=== PATIENT | male | born 1995 ===

== ENCOUNTER 2016-08-23 00:07 | Emergency (ER) | payer OTHER ==
[2016-08-23 00:27] VITALS: BP 145/92; TEMP 98.9
--- NOTE | 2016-08-23 00:27 | ED PDOC ---
Arrival/HPI - General Chief Complaint: Chest Pain Time Seen by Provider: 08/23/16 00:16 Historian: Patient - History of Present Illness Narrative History of Present Illness (Text): 08/23/16 00:26 Dejan Nelson is a 21 year old male, whose past medical history includes hypertension and palpitations, who presents to the ED complaining of chest pain, worsened with movement, tonight while at home. Patient denies any fever, chills, shortness of breath, nausea, vomiting, diarrhea, urinary symptoms , back pain, neck pain, headache, dizziness, or any other complaints. Time/Duration: Other (tonight) Symptom Onset: Gradual Symptom Course: Unchanged Activities at Onset: Rest, Light Context: Home Past Medical History - Provider Review Nursing Documentation Reviewed: Yes Family/Social History - Physician Review Nursing Documentation Reviewed: Yes Family/Social History: No Known Family HX Allergies/Home Meds Allergies/Adverse Reactions: Allergies No Known Allergies Allergy (Verified 08/23/16 00:28) Review of Systems - Physician Review All systems were reviewed & negative as marked: Yes - Review of Systems Constitutional: Normal. absent: Fevers Eyes: Normal ENT: Normal Respiratory: Normal. absent: SOB, Cough Cardiovascular: Chest Pain Gastrointestinal: Normal. absent: Abdominal Pain, Diarrhea, Nausea, Vomiting Genitourinary Male: Normal. absent: Dysuria, Frequency, Hematuria, Urinary Output Changes Musculoskeletal: Normal. absent: Neck Pain Skin: Normal. absent: Rash Neurological: Normal. absent: Headache, Dizziness Endocrine: Normal Hemo/Lymphatic: Normal Psychiatric: Normal Physical Exam Vital Signs Reviewed: Yes Vital Signs Temp Pulse Resp BP Pulse Ox 08/23/16 02:47 80 16 98 08/23/16 00:25 98.9 F 109 H 20 145/92 H 99 Temperature: Afebrile Blood Pressure: Normal Pulse: Regular Respiratory Rate: Normal Appearance: Positive for: Well-Appearing, Non-Toxic, Comfortable Pain Distress: None Mental Status: Positive for: Alert and Oriented X 3 - Systems Exam Head: Present: Atraumatic, Normocephalic Pupils: Present: PERRL Extroacular Muscles: Present: EOMI Conjunctiva: Present: Normal Mouth: Present: Moist Mucous Membranes Neck: Present: Normal Range of Motion Respiratory/Chest: Present: Clear to Auscultation, Good Air Exchange. No: Respiratory Distress, Accessory Muscle Use Cardiovascular: Present: Regular Rate and Rhythm, Normal S1, S2. No: Murmurs Abdomen: Present: Normal Bowel Sounds. No: Tenderness, Distention, Peritoneal Signs Back: Present: Normal Inspection Upper Extremity: Present: Normal Inspection. No: Cyanosis, Edema Lower Extremity: Present: Normal Inspection. No: Edema Neurological: Present: GCS=15, CN II-XII Intact, Speech Normal Skin: Present: Warm, Dry, Normal Color. No: Rashes Psychiatric: Present: Alert, Oriented x 3, Normal Insight, Normal Concentration Medical Decision Making ED Course and Treatment: 08/23/16 00:26 Impression: 18 year old male complaining of chest pain tonight. Differential Diagnosis include but are not limited to: musculoskeletal pain Plan: -- EKG -- Chest X-ray -- Labs, cardiac enzymes, D-dimer -- Toradol -- Reassess and disposition Progress Notes: Reviewed EKG, sinus tachycardia at [address] bpm[address] Non-specific ST/T wave changes. 08/23/16 01:50 Reviewed radiology, Chest X-ray shows no active disease. 08/23/16 03:15 On re-evaluation, the patient feels better and is in no acute distress. I have discussed the results and plan with the patient, who expresses understanding. Patient in agreement with plan to discharged home. Patient is stable for discharge. Patient was instructed to follow up with physician/clinic in 1-2 days or return if symptoms worsen or new concerning symptoms arise. - Lab Interpretations Lab Results: 08/23/16 00:40 08/23/16 01:15 Lab Results 08/23/16 01:15: D-Dimer, Quantitative 0.19, Sodium 137, Potassium 3.3 L, Chloride 100, Carbon Dioxide 25, Anion Gap 15, BUN 16, Creatinine 1.1, Est GFR ( Amer) > 60, Est GFR (Non-Af Amer) > 60, Random Glucose 93, Calcium 8.8, Total Bilirubin 1.1, AST 33, ALT 39, Alkaline Phosphatase 59, Lactate Dehydrogenase 424, Total Creatine Kinase 269 H, CK-MB (CK-2) 2.2, CK-MB (CK-2) % Cancelled, Troponin I < 0.01, Total Protein 7.4, Albumin 4.0, Globulin 3.3, Albumin/Globulin Ratio 1.2 08/23/16 00:40: WBC 10.9, RBC 5.17, Hgb 16.9, Hct 46.5, MCV 89.9, MCH 32.7, MCHC 36.3, RDW 13.0, Plt Count 253, MPV 10.2, PT 11.2, INR 1.04, APTT 25.9 I have reviewed the lab results: Yes - RAD Interpretation Narrative RAD Interpretations (Text): Chest X-ray shows no active disease. Radiology Orders: 08/23/16 00:30 CHEST PORTABLE [RAD] Stat Cloth Opener Hand: ED Physician - EKG Interpretation Interpreted by ED Physician: Yes Type: 12 lead EKG - Medication Orders Current Medication Orders: Discontinued Medications Ketorolac Tromethamine (Toradol) 30 mg IVP ONCE ONE Stop: 08/23/16 00:32 Last Admin: 08/23/16 02:15 Dose: 30 MG IVP Administration Document 08/23/16 02:15 GMD (Rec: 08/23/16 02:15 GMD [id number]) Charges for Administration # of IVP Administrations 1 Potassium Chloride (K-Dur 20 Meq Er Tab) 20 meq PO STAT STA Stop: 08/23/16 02:32 Last Admin: 08/23/16 02:47 Dose: 20 MEQ - Timothyibe Statement The provider has reviewed the documentation as recorded by the Timmy Waggoner Provider Attestation: All medical record entries made by the Timmy were at my direction and personally dictated by me. I have reviewed the chart and agree that the record accurately reflects my personal performance of the history, physical exam, medical decision making, and the department course for this patient. I have also personally directed, reviewed, and agree with the discharge instructions and disposition. Disposition/Present on Arrival - Present on Arrival Any Indicators Present on Arrival: No - Disposition Have Diagnosis and Disposition been Completed?: Yes Diagnosis: Musculoskeletal chest pain Disposition: HOME/ ROUTINE Disposition Time: 03:18 Patient Plan: Discharge Condition: GOOD Discharge Instructions (ExitCare): Chest Pain (ED) Print Language: HEBREW Additional Instructions: Rest/no strenuous physical activity/advil as directed/follow up with your doctor Referrals: [facility], [place], [facility] [Outside] - Follow up with primary
[2016-08-23 00:28] VITALS: BMI 25.7
[2016-08-23 01:08] LABS: INR 1.04 (0.93-1.08); PARTIAL THROMBOPLASTIN TIME 25.9 Seconds (23.7-30.8)
[2016-08-23 01:17] LABS: HEMATOCRIT 46.5 % (42.0-52.0); MEAN CELL VOLUME 89.9 fL (80.0-105.0); MEAN CORPUSCULAR HEMOGLOBIN 32.7 pg (25.0-35.0); MEAN CORPUSCULAR HGB CONC 36.3 g/dl (31.0-37.0); MEAN PLATELET VOLUME 10.2 fl (7.0-11.0); WHITE BLOOD COUNT 10.9 10^3/ul (4.5-11.0)
[2016-08-23 01:41] LABS: ALB/GLOB RATIO 1.2 (1.1-1.8); ALKALINE PHOSPHATASE 59 U/L (38-133); ALT/SGPT 39 U/L (7-56); AST/SGOT 33 U/L (15-39); BILIRUBIN,TOTAL 1.1 mg/dL (0.2-1.3); BLOOD UREA NITROGEN 16 mg/dL (7-18); CALCIUM 8.8 mg/dL (8.4-10.5); CARBON DIOXIDE 25 mmol/L (21-33); CHLORIDE 100 mmol/L (98-107); GFR AFRICAN-AMERICAN > 60; GLUCOSE,RANDOM 93 mg/dL (70-127); POTASSIUM 3.3 mmol/L (3.6-5.0); SODIUM 137 mmol/L (132-148); TOTAL PROTEIN 7.4 g/dL (6.2-8.1)
[2016-08-23 02:13] LABS: TROPONIN I < 0.01 ng/mL
[2016-08-23] MEDS ORDERED: Potassium Chloride 20 mEq ER Tab PO STA (02:31)
[2016-08-23 02:49] VITALS: PULSE 80; RESP 16; O2SAT 98
--- NOTE | 2016-08-23 08:27 | RAD ---
HISTORY: pain COMPARISON: No prior. FINDINGS: LUNGS: No active pulmonary disease. PLEURA: No significant pleural effusion identified, no pneumothorax apparent. CARDIOVASCULAR: Normal. OSSEOUS STRUCTURES: No significant abnormalities. VISUALIZED UPPER ABDOMEN: Normal. OTHER FINDINGS: None. IMPRESSION: No active disease.
--- NOTE | 2016-08-23 15:10 | CARD ---
APPROVED REPORT EKG Measurement Heart [id number] <Conclusion> Sinus tachycardia Minimal voltage criteria for LVH, may be normal variant Inferior infarct, age undetermined Abnormal ECG
== END 2016-08-23 03:21 | disposition home or self-care (01) ==
LOC: ED 00:07
DX: R07.89 Other chest pain (principal); I10 Essential (primary) hypertension
CPT/HCPCS: 71010; 80053; 82550; 82553; 83615; 84484; 85027; 85378; 85610; 85730; 93005; 96374; 99284; J1885

== ENCOUNTER 2018-10-18 20:23 | Emergency (ER) | payer SELFPAY ==
[2018-10-18 20:23] VITALS: BMI 25.7
--- NOTE | 2018-10-18 21:13 | ED PDOC ---
Arrival/HPI - General Historian: Patient, Partner - History of Present Illness Narrative History of Present Illness (Text): 10/18/18 21:10 Pt is a 23 yo male with a PMH of HTN who presents to the ED complaining of dizziness, headache, and chest pressure while he was working yesterday. Pt states the 8/10 chest pain felt like "someone standing on my chest". Pt states that he had to use 3 pillows last night and woke up with dried blood on his pillow and nose. Pt tried Tylenol which only helped minimally. Denies every using cocaine, diarrhea, or constipation. Time/Duration: < week Symptom Course: Worsening Quality: Pressure Severity Level: 8 Activities at Onset: Rest Context: Exertion <Steven Gilliland - Last Filed: 10/19/18 00:50> <Angus Burgos - Last Filed: 10/22/18 20:26> - General Chief Complaint: Dizziness/Lightheaded Past Medical History - Infectious Disease Hx of Infectious Diseases: None - Cardiac Hx Cardiac Arrhythmia: Yes Hx Hypertension: Yes - Psychiatric Hx Substance Use: No - Anesthesia Hx Anesthesia: No Hx Anesthesia Reactions: No Hx Malignant Hyperthermia: No <Steven Gilliland - Last Filed: 10/19/18 00:50> Family/Social History Family/Social History: Diabetes, Hypertension Smoking Status: Never Smoked Hx Alcohol Use: Yes Hx Substance Use: No <Steven Gilliland - Last Filed: 10/19/18 00:50> Allergies/Home Meds <Steven Gilliland - Last Filed: 10/19/18 00:50> <Angus Burgos - Last Filed: 10/22/18 20:26> Allergies/Adverse Reactions: Allergies No Known Allergies Allergy (Verified 08/23/16 00:28) Review of Systems - Review of Systems Constitutional: Normal Eyes: Eye Pain ENT: Epistaxis Respiratory: SOB Cardiovascular: Chest Pain Gastrointestinal: Nausea Genitourinary Male: Normal Musculoskeletal: Normal Skin: Normal Neurological: Dizziness Endocrine: Normal Hemo/Lymphatic: Normal Psychiatric: Normal <Steven Gilliland - Last Filed: 10/19/18 00:50> Physical Exam Vital Signs Reviewed: Yes Vital Signs Temp Pulse Resp BP Pulse Ox 10/18/18 20:23 99.5 F 91 H 18 148/104 H 96 Temperature: Afebrile Blood Pressure: Normal Pulse: Regular Respiratory Rate: Normal Appearance: Positive for: Well-Appearing Mental Status: Positive for: Alert and Oriented X 3 - Systems Exam Head: Present: Atraumatic, Normocephalic Pupils: Present: PERRL Extroacular Muscles: Present: EOMI Mouth: Present: Moist Mucous Membranes Respiratory/Chest: Present: Clear to Auscultation, Good Air Exchange. No: Resp iratory Distress, Accessory Muscle Use Cardiovascular: Present: Normal S1, S2, Tachycardic Abdomen: Present: Normal Bowel Sounds. No: Tenderness, Distention Upper Extremity: Present: Normal Inspection. No: Cyanosis, Edema Lower Extremity: Present: Normal Inspection. No: Edema Neurological: Present: GCS=15, CN II-XII Intact Skin: Present: Warm, Dry Psychiatric: Present: Alert, Oriented x 3 <Steven Gilliland - Last Filed: 10/19/18 00:50> Vital Signs Temp Pulse Resp BP Pulse Ox 10/18/18 21:39 17 96 10/18/18 20:23 99.5 F 91 H 18 148/104 H 96 <Angus Burgos - Last Filed: 10/22/18 20:26> Medical Decision Making ED Course and Treatment: 10/18/18 21:16 CBC CMP Troponin 10/18/18 21:29 10/18/18 22:51 CXR shows no active disease 10/19/18 00:50 will have pt follow up with Dr Lamb in the [facility] Pt seen, examined, assessment and plan discussed with Dr Aubrey Gilliland PGY1 <Steven Gilliland - Last Filed: 10/19/18 00:50> ED Course and Treatment: Impression: Pt seen and evaluated with director medical surgical publication manager. Aware and agree with HPI, clinical findings, plan, and management. Pt, whose past medical history includes hypertension, presented for dizziness, headache, and chest pressure. Plan: -- EKG -- Chest X-ray -- Labs, troponin -- Urinalysis -- Reassess and disposition - Lab Interpretations Lab Results: Troponin I < 0.01 ng/mL 10/18/18 21:20 Total Bilirubin 1.1 mg/dL (0.2-1.3) 10/18/18 21:20 AST 56 U/L (17-59) 10/18/18 21:20 ALT 90 U/L (7-56) H 10/18/18 21:20 Alkaline Phosphatase 69 U/L (38-126) 10/18/18 21:20 Total Protein 8.2 g/dL (5.8-8.3) 10/18/18 21:20 Albumin 4.8 g/dL (3.0-4.8) 10/18/18 21:20 Globulin 3.5 gm/dL 10/18/18 21:20 Albumin/Globulin Ratio 1.4 (1.1-1.8) 10/18/18 21:20 - RAD Interpretation Radiology Orders: 10/18/18 22:08 CXR [CHEST PORTABLE] [RAD] Stat <Angus Burgos - Last Filed: 10/22/18 20:26> - PA / BEAUTY OPERATOR / Resident Statement / has reviewed & agrees with the documentation as recorded. / has examined the patient and agrees with the treatment plan. <Angus Burgos - Last Filed: 10/22/18 20:26> Disposition/Present on Arrival - Present on Arrival Any Indicators Present on Arrival: No History of DVT/PE: No History of Uncontrolled Diabetes: No Urinary Catheter: No History of Decub. Ulcer: No History Surgical Site Infection Following: None - Disposition Have Diagnosis and Disposition been Completed?: Yes Disposition Time: 00:44 Patient Plan: Discharge <Steven Gilliland - Last Filed: 10/19/18 00:50> <Angus Burgos - Last Filed: 10/22/18 20:26> - Disposition Diagnosis: Dizziness Disposition: HOME/ ROUTINE Condition: GOOD Discharge Instructions (ExitCare): Vertigo (a Type of Dizziness), Dizziness, Nonvertigo, (DC) Additional Instructions: have patient follow up with the [facility] here at [facility] with Dr Lamb Referrals: PCP,NO [Primary Care Provider] - Follow up with primary Forms: [employer] ([place]), WORK NOTE
[2018-10-18 21:40] LABS: BASO # 0.05 K/mm3 (0.0-2.0); BASO % 0.3 % (0.0-3.0); EOS # 0.7 (0.0-0.7); HEMOGLOBIN 17.4 g/dL (14.0-18.0); LYMPH # 2.4 (1.2-3.4); LYMPH % 16.2 % (22.0-35.0); MEAN CELL VOLUME 89.1 fl (80.0-105.0); MEAN CORPUSCULAR HEMOGLOBIN 32.3 pg (25.0-35.0); MEAN CORPUSCULAR HGB CONC 36.3 g/dl (31.0-37.0); MEAN PLATELET VOLUME 9.3 fl (7.0-11.0); MONO # 1.1 (0.1-0.6); MONO % 7.3 % (1.0-6.0); RBC 5.39 10^6/uL (3.5-6.1); RED CELL DISTRIBUTION WIDTH 12.7 % (11.5-14.5); WHITE BLOOD COUNT 14.6 10^3/uL (4.5-11.0)
[2018-10-18 21:43] LABS: ALB/GLOB RATIO 1.4 (1.1-1.8); ALBUMIN 4.8 g/dL (3.0-4.8); ALT/SGPT 90 U/L (7-56); AST/SGOT 56 U/L (17-59); BLOOD UREA NITROGEN 14 mg/dL (7-21); CALCIUM 9.7 mg/dL (8.4-10.5); GFR NON-AFRICAN AMERICAN > 60
[2018-10-18 21:55] LABS: TROPONIN I < 0.01 ng/mL
[2018-10-18 23:39] VITALS: O2SAT 94
[2018-10-19 00:27] LABS: PH,URINE 6.5 (4.7-8.0); URINE APPEARANCE CLEAR (CLEAR); URINE BILIRUBIN NEGATIVE (NEGATIVE); URINE BLOOD NEGATIVE (NEGATIVE); URINE COLOR YELLOW (YELLOW); URINE GLUCOSE (UA) NEGATIVE (NEGATIVE); URINE LEUKOCYTE ESTERASE NEGATIVE Leu/uL (NEGATIVE); URINE PROTEIN NEGATIVE mg/dL (<30 mg/dL); URINE UROBILINOGEN 0.2 E.U./dL (<1 E.U./dL)
[2018-10-19 01:11] VITALS: BP 120/74; PULSE 84; RESP 18; TEMP 98.5
--- NOTE | 2018-10-19 08:18 | RAD ---
Date of service: 10/18/2018 HISTORY: leukocytosis COMPARISON: 08/23/2016 TECHNIQUE: Chest PA and lateral views FINDINGS: LUNGS: No active pulmonary disease. PLEURA: No significant pleural effusion identified. No pneumothorax apparent. CARDIOVASCULAR: No aortic atherosclerotic calcification present. Normal cardiac size. No pulmonary vascular congestion. OSSEOUS STRUCTURES: No significant abnormalities. VISUALIZED UPPER ABDOMEN: Normal. OTHER FINDINGS: None. IMPRESSION: No active disease.
--- NOTE | 2018-10-20 18:24 | CARD ---
APPROVED REPORT Date of service: 10/18/2018 EKG Measurement Heart [id number] [place] [id number] <Conclusion> Normal sinus rhythm Normal ECG
== END 2018-10-19 01:12 | disposition home or self-care (01) ==
LOC: ED 20:23
DX: R42 Dizziness and giddiness (principal); I10 Essential (primary) hypertension; Z82.49 Family history of ischemic heart disease and other diseases of the circulatory system; Z83.3 Family history of diabetes mellitus